=== PATIENT | male | born 1995 | race Caucasian/White ===

== ENCOUNTER 2017-08-15 22:03 | Emergency (ER) | payer BC ==
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
[2017-08-16] MEDS ORDERED: HYDROcodone/Acetaminophen 5/325 mg Tablet ONE (00:25)
== END 2017-08-16 00:48 | disposition home or self-care (01) ==
LOC: ERS 22:03
DX: S92.002A Unspecified fracture of left calcaneus, initial encounter for closed fracture (principal); F17.220 Nicotine dependence, chewing tobacco, uncomplicated; V03.10XA Pedestrian on foot injured in collision with car, pick-up truck or van in traffic accident, initial encounter
CPT/HCPCS: 99406

== ENCOUNTER 2019-03-12 17:30 | Inpatient (IN) | payer SELFPAY ==
[2019-03-12 17:49] LABS: #Eosinphils 0.3 thou/uL (0.0-0.7); #Lymphocytes 1.6 thou/uL (1.20-3.40); #Monocytes 0.9 thou/uL (0.11-0.59); #Neutrophils 14.6 thou/uL (1.40-6.50); %Basophils 0.3 % (0.0-1.0); %Eosinophils 1.9 % (0.0-10.0); %Monocytes 5.2 % (0.0-10.0); %Neutrophils 83.6 % (42.0-75.0); Hemoglobin 16.7 g/dL (14.0-18.0); Mean Corpuscular HGB CONC 33.8 g/dL (32.0-36.0); Mean Corpuscular Hemoglobin 31.8 pg (27.0-31.0); Mean Corpuscular Volume 94.1 fL (78.0-98.0); Mean Platelet Volume 8.1 fL (7.4-10.4); Platelet Count 238 thou/uL (130-400); RBC Distribution Width 11.8 % (11.5-14.5); Red Blood Cell (RBC) Count 5.25 mill/uL (4.70-6.10); White Blood Cell (WBC) Count 17.4 thou/uL (4.8-10.8)
[2019-03-12 17:57] LABS: PTT 23.6 SEC (22.9-36.1); Prothrombin Time 12.8 SEC (12.0-14.7)
[2019-03-12 18:04] LABS: ALT (SGPT) 34 U/L (8-55); AST (SGOT) 24 U/L (5-34); Albumin 4.2 g/dL (3.5-5.0); Alcohol Less than 10 mg/dL (Less than 10); Alkaline Phosphatase 82 U/L (40-110); Anion Gap 14 mmol/L (10-20); BUN (Urea Nitrogen) 11 mg/dL (8.9-20.6); Bilirubin, Total 0.4 mg/dL (0.2-1.2); Calc. Creatinine Clearance 0 mL/min (70-130); Calcium 9.2 mg/dL (7.8-10.44); Carbon Dioxide 21 mmol/L (22-29); Chloride 106 mmol/L (98-107); Estimated GFR-MDRD Greater than 90; Globulin 2.5 g/dL (2.4-3.5); Glucose 116 mg/dL (70-105); Lipase 27 U/L (8-78); Potassium 3.9 mmol/L (3.5-5.1); Protein, Total 6.7 g/dL (6.0-8.3); Sodium 137 mmol/L (136-145)
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
[2019-03-12] MEDS ORDERED: Morphine 4 MG/ML VIAL ONE (18:36)
[2019-03-12] MEDS ORDERED: Lidocaine 2% Jelly 5 ML TUBE ONE (19:57)
[2019-03-12] MEDS ORDERED: HYDROmorphone 0.5 MG/0.5 ML SYRINGE ONE (19:57)
[2019-03-12] MEDS ORDERED: Fentanyl 100 MCG/2 ML VIAL ONE ×2 (19:57→22:20)
[2019-03-12] MEDS ORDERED: Midazolam HCl 2 mg/2 ml Vial ONE (19:57)
[2019-03-12] MEDS ORDERED: Neomycin-Polymyxin 1 ML AMP ONE (20:13)
[2019-03-12 20:46] LABS: Amphetamine Detected (NotDetected); Barbiturates Screen Not Detected (NotDetected); Benzodiazepine Screen Not Detected (NotDetected); Cocaine Metabolite Screen Not Detected (NotDetected); Medtox Control Line Valid? VALID (VALID); Medtox Reader # READER 1; Methadone Not Detected (NotDetected); Methamphetamine Detected (NotDetected); Opiate Screen Detected (NotDetected); Oxycodone Screen Not Detected (NotDetected); Phencyclidine (PCP) Not Detected (NotDetected); THC/Cannabinoid Screen Not Detected (NotDetected); Tricyclic Screen Not Detected (NotDetected)
[2019-03-12] MEDS ORDERED: Lidocaine 1% PF 5 ML VIAL ONE (20:48)
[2019-03-12] MEDS ORDERED: PROPOFOL 200 MG/20 ML VIAL ONE (20:48)
[2019-03-12] MEDS ORDERED: Rocuronium Bromide 10 MG/ML (10ML VIAL) ONE (20:48)
[2019-03-12] MEDS ORDERED: Succinylcholine Chloride 20 MG/ML 10 ml SYRINGE FS ONE (20:48)
[2019-03-12] MEDS ORDERED: Glycopyrrolate 0.2 MG/ML 5 ML SYRINGE ONE (20:48)
[2019-03-12] MEDS ORDERED: Promethazine HCl 25 MG/ML VIAL SLOW IVP PRN (23:11)
[2019-03-12] MEDS ORDERED: Ondansetron HCl/PF 4 MG/2 ML Vial IVP PRN (23:11)
[2019-03-12] MEDS ORDERED: Promethazine HCl 25 MG/ML VIAL IM PRN (23:11)
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
[2019-03-12] MEDS ORDERED: traMADol HCl 50 MG TAB PO PRN (23:45)
[2019-03-12] MEDS ORDERED: hydrALAZINE 20 MG/ML VIAL SLOW IVP PRN (23:45)
[2019-03-12] MEDS ORDERED: Morphine 2 MG/ML SYRINGE SLOW IVP PRN (23:45)
[2019-03-12] MEDS ORDERED: Ondansetron PF 4 MG/2 ML Vial IVP PRN (23:45)
[2019-03-12] MEDS ORDERED: Dextrose 5% in Water 1,000 ML IV PRN (23:45)
[2019-03-12] MEDS ORDERED: Dextrose 50% Abboject 50 ML SYRINGE SLOW IVP PRN (23:45)
[2019-03-12] MEDS ORDERED: Ondansetron ODT 4 MG TAB PO PRN (23:45)
[2019-03-12] MEDS ORDERED: Famotidine 20 MG TAB PO SCH (23:59)
[2019-03-12] MEDS ORDERED: CEFAZOLIN 1 GM in Sodium Chloride 0.9% 100 ML IVPB SCH (23:59)
[2019-03-12] MEDS ORDERED: Ketorolac Tromethamine 30 MG/ML VIAL IVP SCH (23:59)
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
[2019-03-13 00:07] VITALS: BMI 29.5
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
[2019-03-13] MEDS: Sodium Chloride 0.9% 1,000 ML IV SCH ×2 (00:38→10:25)
[2019-03-13] MEDS: CEFAZOLIN 2 GM in Premix Bag 1 BAG IVPB SCH ×3 (00:42→17:15)
[2019-03-13] MEDS: Acetaminophen 500 MG TAB PO SCH ×5 (02:04→18:48)
[2019-03-13] MEDS: traMADol HCl 50 MG TAB PO SCH ×5 (02:05→18:49)
[2019-03-13] MEDS: Famotidine 20 MG TAB PO SCH ×3 (02:13→21:31)
[2019-03-13] MEDS: Cyclobenzaprine 10 MG TAB PO PRN ×2 (02:14→12:34)
[2019-03-13] MEDS: Morphine 4 MG/ML VIAL SLOW IVP PRN ×2 (02:18→05:38)
[2019-03-13] MEDS: Ibuprofen 800 MG TAB PO SCH ×3 (05:37→21:31)
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
[2019-03-13 08:32] LABS: #Lymphocytes 0.8 thou/uL (1.20-3.40); #Neutrophils 13.8 thou/uL (1.40-6.50); %Eosinophils 0.1 % (0.0-10.0); %Lymphocytes 5.2 % (21.0-51.0); %Monocytes 6.4 % (0.0-10.0); %Neutrophils 88.3 % (42.0-75.0); Hemoglobin 14.6 g/dL (14.0-18.0); Mean Corpuscular HGB CONC 32.8 g/dL (32.0-36.0); Mean Corpuscular Hemoglobin 31.2 pg (27.0-31.0); Mean Corpuscular Volume 95.1 fL (78.0-98.0); Mean Platelet Volume 8.2 fL (7.4-10.4); Platelet Count 255 thou/uL (130-400); RBC Distribution Width 11.8 % (11.5-14.5); Red Blood Cell (RBC) Count 4.67 mill/uL (4.70-6.10); White Blood Cell (WBC) Count 15.6 thou/uL (4.8-10.8)
[2019-03-13 08:39] LABS: Anion Gap 11 mmol/L (10-20); BUN (Urea Nitrogen) 9 mg/dL (8.9-20.6); Calc. Creatinine Clearance 209 mL/min (70-130); Calcium 8.4 mg/dL (7.8-10.44); Carbon Dioxide 23 mmol/L (22-29); Chloride 104 mmol/L (98-107); Estimated GFR-MDRD Greater than 90; Glucose 113 mg/dL (70-105); Potassium 4.2 mmol/L (3.5-5.1); Sodium 134 mmol/L (136-145)
[2019-03-13] MEDS ORDERED: FLU VACC QS2019-20(6MOS UP)/PF 60 MCG/0.5 ML SYRINGE IM ONE (09:00)
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
--- NOTE | 2019-03-13 17:38 | PRG ---
DATE OF SERVICE: 03/13/2019 SUBJECTIVE: The patient is 1 day status post surgery on the right hand and lateral aspect of the left elbow. He has some decreased sensation in the left hand. He states he is able to feel light touch as expected. The patient is unable to extend his fingers, thumb, and wrist. OBJECTIVE: VITAL SIGNS: The patient is afebrile. Vital signs are stable. EXTREMITIES: Dressings on the left elbow and forearm as well as the right hand are intact and clean. Both hands have good capillary refill. LABORATORY DATA: White count 15.6, hemoglobin 14.6, and hematocrit 44.5. PLAN: I talked with Occupational Therapy and they will place a splint on the patient's left hand and wrist to keep the thumb, fingers, and wrist in extension and he will probably be able to be discharged tomorrow. He will follow up in my office in a week. I did explain to the patient that he probably will need additional surgery to the right hand, which would possibly include bone grafting and potentially fusion at the 1st carpometacarpal joint. Job ID: [id number]
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
[2019-03-14] MEDS: Sodium Chloride 0.9% 1,000 ML IV SCH ×2 (00:26→09:17)
[2019-03-14] MEDS: Acetaminophen 500 MG TAB PO SCH ×3 (01:07→12:10)
[2019-03-14] MEDS: traMADol HCl 50 MG TAB PO SCH ×3 (01:08→12:11)
[2019-03-14] MEDS: CEFAZOLIN 2 GM in Premix Bag 1 BAG IVPB SCH (01:08)
[2019-03-14] MEDS: Ibuprofen 800 MG TAB PO SCH (05:28)
[2019-03-14 05:56] LABS: #Basophils 0.1 thou/uL (0.0-0.2); #Eosinphils 0.1 thou/uL (0.0-0.7); #Lymphocytes 1.8 thou/uL (1.20-3.40); #Monocytes 0.8 thou/uL (0.11-0.59); #Neutrophils 7.6 thou/uL (1.40-6.50); %Basophils 0.5 % (0.0-1.0); %Eosinophils 1.2 % (0.0-10.0); %Lymphocytes 16.9 % (21.0-51.0); %Monocytes 7.8 % (0.0-10.0); %Neutrophils 73.5 % (42.0-75.0); Hemoglobin 13.5 g/dL (14.0-18.0); Mean Corpuscular HGB CONC 33.8 g/dL (32.0-36.0); Mean Corpuscular Hemoglobin 32.1 pg (27.0-31.0); Mean Corpuscular Volume 94.9 fL (78.0-98.0); Mean Platelet Volume 8.1 fL (7.4-10.4); Platelet Count 199 thou/uL (130-400); RBC Distribution Width 11.7 % (11.5-14.5); Red Blood Cell (RBC) Count 4.21 mill/uL (4.70-6.10); White Blood Cell (WBC) Count 10.3 thou/uL (4.8-10.8)
[2019-03-14 06:18] LABS: Anion Gap 10 mmol/L (10-20); BUN (Urea Nitrogen) 9 mg/dL (8.9-20.6); Calc. Creatinine Clearance 206 mL/min (70-130); Calcium 8.2 mg/dL (7.8-10.44); Carbon Dioxide 27 mmol/L (22-29); Chloride 105 mmol/L (98-107); Estimated GFR-MDRD Greater than 90; Glucose 95 mg/dL (70-105); Magnesium 1.8 mg/dL (1.6-2.6); Phosphorus 2.5 mg/dL (2.3-4.7); Potassium 3.7 mmol/L (3.5-5.1); Sodium 138 mmol/L (136-145)
[2019-03-14] MEDS: Famotidine 20 MG TAB PO SCH (09:15)
[2019-03-14 11:01] VITALS: BP 152/74; TEMP 98.1
--- NOTE | 2019-03-14 12:29 | PRG ---
DATE OF SERVICE: 03/14/2019 Mr. Eckert states that he has good pain control. He is able to get up, ambulate well. Vital signs; the patient is afebrile. His vital signs are stable. Laboratory shows hemoglobin 13.5, hematocrit 40. The patient has a wrist immobilizer on the left. He is unable to actively extend his fingers or his thumb or his wrist. The dressing on the left elbow and over the right hand are intact and clean and dry. The patient is ready for discharge to follow up with me in 1 week. Job ID: [id number]
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
== END 2019-03-14 12:35 | disposition home or self-care (01) | DRG 501 ==
LOC: EEVIPCON 17:30 → ERS 17:30 → SDC/OP 21:01 → CCU 21:02 → SURG A 23:20
PROVIDERS: ADMIT Surgery; ATTEND Surgery
PROC: 05H633Z Insertion of Infusion Device into Left Subclavian Vein, Percutaneous Approach (ICD-10-PCS; principal; 2019-03-12)
PROC: 0PSQ04Z Reposition Left Metacarpal with Internal Fixation Device, Open Approach (ICD-10-PCS; 2019-03-12)
PROC: 0KQC0ZZ Repair Right Hand Muscle, Open Approach (ICD-10-PCS; 2019-03-12)
PROC: 0KQ80ZZ Repair Left Upper Arm Muscle, Open Approach (ICD-10-PCS; 2019-03-12)
PROC: 0KD80ZZ Extraction of Left Upper Arm Muscle, Open Approach (ICD-10-PCS; 2019-03-12)
PROC: 0PSP04Z Reposition Right Metacarpal with Internal Fixation Device, Open Approach (ICD-10-PCS; 2019-03-12)
DX: S62.201B Unspecified fracture of first metacarpal bone, right hand, initial encounter for open fracture (principal); S66.821A Laceration of other specified muscles, fascia and tendons at wrist and hand level, right hand, initial encounter; S56.922A Laceration of unspecified muscles, fascia and tendons at forearm level, left arm, initial encounter; S66.891A Other injury of other specified muscles, fascia and tendons at wrist and hand level, right hand, initial encounter; F17.210 Nicotine dependence, cigarettes, uncomplicated; X94.0XXA Assault by shotgun, initial encounter; S51.022A Laceration with foreign body of left elbow, initial encounter; S62.202B Unspecified fracture of first metacarpal bone, left hand, initial encounter for open fracture
CPT/HCPCS: 36415; 71045; 71260; 72170; 74018; 74177; 76000; 80048; 80053; 80306; 80307; 82550; 83605; 83690; 83735; 84100; 85025; 85610; 85730; 86850; 86900; 86901; 90471; 93005; 94760; 96374; 96375; C1713; G0390; J0690; J1170; J1885; J2001; J2250; J2270; J2704; J3010

== ENCOUNTER 2019-05-04 09:05 | Day surgery (SDC) | payer OTHER, SELFPAY ==
[2019-05-03 09:24] VITALS: BMI 29.0
[2019-05-04] MEDS ORDERED: Fentanyl 100 MCG/2 ML VIAL ONE ×3 (13:09→15:30)
[2019-05-04] MEDS ORDERED: ePHEDrine/0.9% NaCl/PF SYRINGE 50 mg/10 ml ONE (13:16)
[2019-05-04] MEDS ORDERED: Glycopyrrolate 0.2 MG/ML 5 ML SYRINGE ONE (13:16)
[2019-05-04] MEDS ORDERED: Lidocaine 1% PF 5 ML VIAL ONE (13:16)
[2019-05-04] MEDS ORDERED: Dexamethasone 20 MG/5 ML VIAL ONE (13:16)
[2019-05-04] MEDS ORDERED: Ketorolac Tromethamine 30 MG/ML VIAL ONE (13:16)
[2019-05-04] MEDS ORDERED: Rocuronium Bromide 10 MG/ML (10ML VIAL) ONE (13:16)
[2019-05-04] MEDS ORDERED: Ondansetron PF 4 MG/2 ML Vial ONE (13:16)
[2019-05-04] MEDS ORDERED: PROPOFOL 200 MG/20 ML VIAL ONE (13:16)
[2019-05-04] MEDS ORDERED: Neomycin-Polymyxin 1 ML AMP ONE (13:19)
[2019-05-04] MEDS ORDERED: Lidocaine 1% (PF) 30 ML VIAL ONE (13:19)
[2019-05-04] MEDS ORDERED: Bupivacaine PF 0.5% 30 ML VIAL ONE (14:02)
[2019-05-04] MEDS ORDERED: Lidocaine 1% w/Epinephrine 1:100K 20 ML VIAL ONE (14:02)
[2019-05-04] MEDS ORDERED: HYDROcodone/Acetaminophen 5/325 mg Tablet ONE (16:39)
--- NOTE | 2019-05-04 17:13 | RAD ---
EXAM: XR Hand Rt 3 View STANDARD PROVIDED CLINICAL HISTORY: Hardware removed COMPARISON: 04/18/2019 FINDINGS: 3 spot fluoroscopic images of the radial aspects of the right hand submitted. Interval removal of mul tiple K wires. Side plate and screw fixation of the thumb metacarpal and possibly the CMC joint. Extensive fragmentation of the thumb metacarpal without distinct visualization of the trapezium. Roun ded metallic densities are seen within the soft tissues of the radial aspect of the wrist. IMPRESSION: As above
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
== END 2019-05-04 16:55 | disposition home or self-care (01) ==
LOC: SDC 09:05
PROVIDERS: ATTEND Orthopaedic Surgery
PROC: 0PSP04Z Reposition Right Metacarpal with Internal Fixation Device, Open Approach (ICD-10-PCS; principal; 2019-05-04)
PROC: 0PPP04Z Removal of Internal Fixation Device from Right Metacarpal, Open Approach (ICD-10-PCS; principal; 2019-05-04)
DX: T84.84XA Pain due to internal orthopedic prosthetic devices, implants and grafts, initial encounter (principal); S62.201A Unspecified fracture of first metacarpal bone, right hand, initial encounter for closed fracture; S62.171A Displaced fracture of trapezium [larger multangular], right wrist, initial encounter for closed fracture; Y83.1 Surgical operation with implant of artificial internal device as the cause of abnormal reaction of the patient, or of later complication, without mention of misadventure at the time of the procedure
CPT/HCPCS: 76000; J0690; J1100; J1885; J2001; J2405; J2704; J3010; S0020